=== PATIENT | female | born 1985 | race Caucasian/White ===

== ENCOUNTER 2021-11-11 21:29 | Emergency (ER) | payer BC, SELFPAY ==
[2021-11-11 21:39] VITALS: BP 152/102; PULSE 91; RESP 18; TEMP 36.7; O2SAT 97; BMI 33.0
--- NOTE | 2021-11-11 21:56 | CTR_ITS ---
PROCEDURE INFORMATION: Exam: CT Abdomen And Pelvis Without Contrast Exam date and time: 11/11/2021 10:41 PM Age: 36 years old Clinical indication: Abdominal pain; Generalized; Additional info: Abd pain TECHNIQUE: Imaging protocol: Computed tomography of the abdomen and pelvis without contrast. Radiation optimization: All CT scans at this facility use at least one of these dose optimization techniques: automated exposure control; mA and/or kV adjustment per patient size (includes targeted exams where dose is matched to clinical indication); or iterative reconstruction. COMPARISON: US pelvic with transvaginal 08/07/2017 11:31 PM RADIATION DOSE METRICS: Total DLP (mGy-cm): 899.03 FINDINGS: Liver: Normal. No mass. Gallbladder and bile ducts: Normal. No calcified stones. No ductal dilation. Pancreas: Normal. No ductal dilation. Spleen: Normal. No splenomegaly. Adrenal glands: Normal. No mass. Kidneys and ureters: One or more nonobstructing left renal calyceal stones. Stomach and bowel: Unremarkable. No obstruction. No mucosal thickening. Appendix: Normal appendix. Intraperitoneal space: Unremarkable. No free air. No significant fluid collection. Vasculature: Calcification of the abdominal aorta and/or iliac arteries consistent with atherosclerotic vessel disease. One or more calcified pelvic phleboliths. Lymph nodes: Unremarkable. No enlarged lymph nodes. Urinary bladder: Unremarkable as visualized. Reproductive: Unremarkable as visualized. Bones/joints: Unremarkable. No acute fracture. Soft tissues: Unremarkable. CT/CT abdomen pelvis wo con [id number] IMPRESSION: No acute findings.
--- NOTE | 2021-11-11 21:58 | W.ED.ABDPA2 ---
HPI - Abdominal Pain General: Chief Complaint: Abdominal Pain Stated Complaint: abdomen pain Time Seen by Provider: 11/11/21 21:40 Source: patient Mode of arrival: ambulatory Limitations: no limitations History of Present Illness: 28-year-old female who states she has been having abdominal pains along with diarrhea and nausea for the last month she states she set up for an ultrasound of her gallbladder but pain is worsens week and states is diffuse in nature and has some hoarseness with eating. Rates her pain currently 6 out of 10 denies any fevers denies any chest pain. No history of abdominal surgeries in the past. Associated Symptoms: Reports diarrhea; Denies chills, dysuria and fever(s) Related Data: Date of Last Menstrual Period: 11/07/21 Review of Systems Const: Denies: fever(s), chills, body aches or change in appetite Eyes: Denies: blurry vision or eye discomfort ENMT: Denies: throat pain or dental pain Card: Denies: chest pain Resp: Denies: dyspnea GI: Reports: abdominal pain and diarrhea : Denies: dysuria Musc: Denies: neck pain or back pain Skin/Breast: Denies: rash Neuro: Denies: headache(s) Psych: Denies: depression Leland/Lymph: Denies: easy bruising All/Imm: Denies: urticaria PFSH ED PFSH: Medical History No pertinent past medical history Social History (Updated 11/11/21 @ 21:59 by Carlos Cohen MD) Substance/Drug Use: never Female Reproductive History: Date of last menstrual period: 11/07/21 Physical Exam Const: COMMON NORMALS: no acute distress, patient oriented x3 and healthy appearing HENMT: COMMON NORMALS: normocephalic and atraumatic HEAD & SCALP: normocephalic and atraumatic Eye: COMMON NORMALS: Equal, round and reactive pupils present and EOMs intact bilaterally PUPIL: Yes Equal, round and reactive pupils present Neck/C-Spine: COMMON NORMALS: full ROM and supple Chest: COMMONS NORMALS: normal inspection of the chest and normal palpation of entire chest wall Resp: COMMON NORMALS: normal respiratory effort, No retractions, No use of accessory muscles and clear to auscultation bilaterally AUSCULTATION: clear to auscultation bilaterally Cardio: COMMON NORMALS: regular rate, regular rhythm and No murmurs present (Cardio) RATE: regular rate RHYTHM: regular rhythm GI: COMMON NORMALS: Normal to inspection, nondistended, normoactive bowel sounds present, Soft to palpation and no masses PALPATION: Yes Soft to palpation OTHER: diffuse tenderness Extremity: COMMON NORMALS: normal to inspection and full ROM Neuro: COMMON NORMALS: patient oriented x3, moves all extremities and no focal motor deficits Psych: COMMON NORMALS: mental status grossly normal, Normal thought process present and cooperative THOUGHT PROCESS: Normal thought process present Skin: COMMON NORMALS: no rashes or lesions noted and no wounds GENERAL SKIN EXAM: no rashes or lesions noted Course Vital Signs: Vital signs: Vital Signs Temperature 98.1 F 11/11/21 21:39 Pulse Rate 71 11/11/21 22:57 Respiratory Rate 16 11/11/21 22:57 Blood Pressure 127/76 11/11/21 22:57 Pulse Oximetry 94 11/11/21 22:57 Oxygen Delivery Me thod 11/11/21 21:39 MDM - Abdominal Pain Medical Decision Making Patient presents with abdominal pain that is improved here her blood work and CT scan here are normal her pain here is improved we will place her on [facility] get her follow-up with surgery she is return if worsening she understands agrees to plan. Lab Data : 11/11/21 22:30 11/11/21 22:30 Labs/Radiology: Radiology Impressions Abdomen/Pelvis CT 11/11/21 21:56 IMPRESSION: No acute findings. Laboratory Results WBC 10.3 10^3/uL (4.0-10.0) H 11/11/21 22:30 RBC 4.65 10^6/uL (4.1-5.3) 11/11/21 22:30 Hgb 13.9 g/dL (11.5-15.3) 11/11/21 22:30 Hct 41.2 % (37.0-47.0) 11/11/21 22:30 MCV 88.6 fl (81-99) 11/11/21 22:30 MCH 29.9 pg (28.0-34.0) 11/11/21 22:30 MCHC 33.7 g/dL (30.0-36.0) 11/11/21 22:30 RDW 12.5 % (12.1-15.1) 11/11/21: Plt Count 292 10^3/cmm (130-400) 11/11/21 22: MPV 9.1 fL (7.4-10.4) 11/11/21 22: Neut % (Auto) 48.2 % 11/11/21 22: Lymph % (Auto) 42.2 % 11/11/21: [place] % (Auto) 6.7 % 11/11/21: Eos % (Auto) 2.0 % 11/11/21: Baso % (Auto) 0.6 % 11/11/21: Neut # (Auto) 4.96 10^3/uL (1.8-7.7) 11/11/21: Lymph # (Auto) 4.3 10^3/uL (0.8-4.8) 11/11/21: [place] # (Auto) 0.7 10^3/uL (0.2-0.9) 11/11/21: Eos # (Auto) 0.2 10^3/uL (0.0-0.8) 11/11/21: Baso # (Auto) 0.1 10^3/uL (0.0-0.1) 11/11/21: Nucleated RBC % (auto) 0 % 11/11/21: Nucleated RBCs # 0.0 /100WBC 11/11/21: Sodium 140 mmol/L (136-145) 11/11/21: Potassium 3.6 mmol/L (3.5-5.1) 11/11/21: Chloride 106 mmol/L (98-107) 11/11/21: Carbon Dioxide 22 mmol/L (22-29) 11/11/21: Anion Gap 15.6 (5-19) 11/11/21 22: BUN 13 mg/dL (6-20) 11/11/21: Creatinine 0.7 mg/dL (0.5-0.9) 11/11/21: GFR Calculation 93.6 mL/min (90-130) 09/24/22 22:30 Glucose 137 mg/dL (65-115) H 11/11/21 22:30 Calculated Osmolality 292 mOsm/kg (285-295) 11/11/21 22:30 Calcium 8.7 mg/dL (8.5-10.5) 11/11/21 22:30 Total Bilirubin 0.2 mg/dL (0.15-1.2) 11/11/21 22:30 AST 10 U/L (0-32) 11/11/21 22:30 ALT 12 U/L (0-33) 11/11/21 22:30 Alkaline Phosphatase 90 U/L (35-105) 11/11/21 22:30 Total Protein 7.0 g/dL (6.6-8.7) 11/11/21: Albumin 4.0 g/dL (3.5-5.2) 11/11/21 22: Globulin 3.0 g/dL (1.3-4.6) 11/11/21 22: Lipase 27 U/L (13-60) 11/11/21 22:30 HCG, Qual Negative (Negative) 11/11/21 22:30 Urine Color Yellow (Yellow) 11/11/21 21:35 Urine Appearance Clear (CLEAR) 11/11/21 21:35 Urine pH 7 (5-7) 11/11/21 21:35 Ur Specific [place] 1.010 (1.005-1.030) 11/11/21 21:35 Urine Protein Neg (Negative) 11/11/21 21:35 Urine Glucose (UA) Norm (Normal) 11/11/21 21:35 Urine Ketones Negative (Negative) 11/11/21 21:35 Urine Blood 3+ (Negative) H 11/11/21 21:35 Urine Nitrate Negative (Negative) 11/11/21 21:35 Urine Bilirubin Neg (Negative) 11/11/21 21:35 Urine Urobilinogen Neg mg/dL (Negative) 11/11/21 21:35 Ur Leukocyte Esterase 1+ (Negative) H 11/11/21 21:35 Urine RBC 5-10 /hpf (0-2) H 11/11/21 21:35 Urine WBC 10-15 /hpf (0-5) H 11/11/21 21:35 Ur Squamous Epith Cells 10-15 /hpf (0-5) H 11/11/21 21:35 Amorphous Sediment Not Reportable 11/11/21 21:35 Urine Bacteria Trace /hpf (NONE) 11/11/21 21:35 Discharge Plan Discharge Patient Disposition: Home Clinical Impression: Abdominal pain Qualifiers: Abdominal location: generalized Qualified Code(s): R10.84 - Generalized abdominal pain Prescriptions: New ondansetron 4 mg tablet,disintegrating 4 mg PO Q6H PRN (Reason: nausea and vomiting) Qty: 14 0RF dicyclomine 20 mg tablet 20 mg PO TID PRN (Reason: abdominal pain) Qty: 20 0RF Discharge Orders: Discharge ED (Routine); Ordered 11/11/21 Ordered By: Carlos Cohen Referrals: Corby Rojas MD [Physician] - 1-3 days Mary Coates APRN [Primary Care Provider] - Discharge Diet: Advance as tolerated Discharge Activity: Resume usual activity Patient Instructions: Abdominal Pain (ED) Coding Level of Care Code ED Cartridge Loading Operator for Chg Fwd Exam Comprehensive
[2021-11-11 22:02] LABS: Add Urine Microscopic? YES; Bilirubin Urine Neg (Negative); Blood Urine 3+ (Negative); Glucose Urine UA Norm (Normal); Ketones Urine Negative (Negative); Leukocyte Esterase Urine 1+ (Negative); Nitrate Urine Negative (Negative); Protein Urine Neg (Negative); Urine Appearance Clear (CLEAR); Urine Color Yellow (Yellow); Urobilinogen Urine Neg (Negative); pH Urine 7 (5-7)
[2021-11-11 22:03] LABS: Add Urine Culture? No; Bacteria Urine TRACE /hpf
[2021-11-11] MEDS: sodium chloride 0.9% 1,000 ML 999 ML IV (22:26)
[2021-11-11] MEDS: metoclopramide 5 mg/mL SDV 2 mL 10 MG IVP (22:27)
[2021-11-11] MEDS: diphenhydrAMINE 50 mg/mL SDV 1mL IVP (22:27)
[2021-11-11 22:47] LABS: Basophils # 0.1 10^3/uL (0.0-0.1); Basophils % 0.6 %; Eosinophils # 0.2 10^3/uL (0.0-0.8); Hematocrit 41.2 % (37.0-47.0); Hemoglobin 13.9 g/dL (11.5-15.3); Lymphocytes # 4.3 10^3/uL (0.8-4.8); Lymphocytes % 42.2 %; Mean Corpuscular HGB Conc 33.7 g/dL (30.0-36.0); Mean Corpuscular Hemoglobin 29.9 pg (28.0-34.0); Mean Corpuscular Volume 88.6 fl (81-99); Mean Platelet Volume 9.1 fL (7.4-10.4); Monocytes # 0.7 10^3/uL (0.2-0.9); Monocytes % 6.7 %; Neutrophils # 4.96 10^3/uL (1.8-7.7); Neutrophils % 48.2 %; Nucleated Red Blood Cells % 0 %; Platelet Count 292 10^3/cmm (130-400); Red Blood Count 4.65 10^6/uL (4.1-5.3); Red Cell Distribution Width 12.5 % (12.1-15.1); White Blood Count 10.3 10^3/uL (4.0-10.0)
[2021-11-11 22:57] VITALS: BP 127/76; PULSE 71; RESP 16; O2SAT 94
[2021-11-11 23:07] LABS: HCG, Serum Qual Negative (Negative)
[2021-11-11 23:12] LABS: Alanine Aminotransferase 12 U/L (0-33); Alkaline Phosphatase 90 U/L (35-105); Anion Gap 15.6 (5-19); Aspartate Amino Transferase 10 U/L (0-32); Blood Urea Nitrogen 13 mg/dL (6-20); Calcium 8.7 mg/dL (8.5-10.5); Carbon Dioxide 22 mmol/L (22-29); Chloride 106 mmol/L (98-107); Creatinine Clr Calc Pharmacy 129.4362; Glomerular Filtration Rate 93.6 mL/min (90-130); Glucose 137 mg/dL (65-115); Lipase 27 U/L (13-60); Osmolality Calculated 292 mOsm/kg (285-295); Potassium 3.6 mmol/L (3.5-5.1); Sodium 140 mmol/L (136-145); Total Bilirubin 0.2 mg/dL (0.15-1.2)
[2021-11-11 23:43] VITALS: BP 117/68; PULSE 63; RESP 16; O2SAT 95
--- NOTE | 2021-11-14 09:09 | DCPLANNER ---
Addendum entered by Deneen Cuellar 02/07/22 10:45: This appointment has been cancelled Addendum entered by Deneen Cuellar 11/14/21 15:07: Patient has a follow up appointment scheduled for Monday, November 22, 2021 at 3:[address] Rojas at general surgery. Clinic will call patient with appointment information. Original Note: assistant sales center manager had message to schedule a follow up appointment for patient with general surgery. assistant sales center manager sent patients information to the front office staff at general surgery. Patients information will be printed and reviewed. Clinic will call patient with appointment information.
== END 2021-11-11 23:30 | disposition home or self-care (01) ==
PROVIDERS: Emergency Provider Emergency Medicine; PCP Nurse Practitioner Family
DX: R10.84 Generalized abdominal pain (principal)
CPT/HCPCS: 74176; 80053; 81001; 83690; 84703; 85025; 96361; 96374; 96375; 99285; J1200; J2765; J7030

== ENCOUNTER 2024-10-18 15:13 | Emergency (ER) | payer MEDICAID, SELFPAY ==
--- OUTSIDE RECORDS SUMMARY | 2024-04-22 03:45 | XMS_ITS ---
Author Organization [facility] Address [address] [place] [address] Care Team Providers Care Collet Maker Name Role Phone Mary Coates APRN Primary Care Provider Sarah espinosaJocy West Unavailable [phone] Justin Black [phone] REASON FOR VISIT Over Due OV; CCS NOT DONE Encounters Encounter Location Date Provider Diagnosis [facility] [address] [place] [address], [place] [address] 04/22/2024 Justin Black Plan Of Treatment No Information Progress Notes * KAREN STOKESOB:[birth year] (39 yo F)Acc No.[id number]:04/22/2024 Progress Notes Patient: ALPESH DIAMOND Provider: Henrry Black MD :1985 A ge:38 Y S ex:Female Date:04/22/2024 Address: [address] [id number] Pcp:Mary Coates APRN Subjective: * Chief Complaints: * O horace Due OV; CCS NOT DONE Billing Information: * Procedure Codes: Care Plan Details* * Electronic signature of Jose M Black MD on 10/18/2024 at 03:17 PM CDT Sign off status: Pending * Provider: Henrry Black MD Date: 04/22/2024 Generated for Printi ng/Faxing/eTransmitting on: 0 10/18/2024 03:17 PM CDT
--- OUTSIDE RECORDS SUMMARY | 2024-05-11 04:00 | XMS_ITS ---
Author Organization [facility] Address [address] [place] [address] Care Team Providers Care Hip Hop Dance Instructor Name Role Phone Mary Coates APRN Primary Care Provider Sarah Jocy Parker Unavailable [phone] Lisa Shine Unavailable [phone] Allergies Allergen (clinical drug ingredient) Drug/Non Drug Allergy documented on EMR Reaction Allergy Type Onset Date Status Information temporarily unavailable Other (uncoded) (Tylenol w/Codeine #3) - bad thoughts Allergy Active Information temporarily unavailable Acetaminophen-Code ine , , Drug Allergy Active Information temporarily unavailable Codeine Unknown Drug Allergy Active REASON FOR VISIT dysmenorrhea Medications Medication SIG (Take, Route, Frequency, Duration) Notes Start Date End Date Status clonazePAM 0.5 MG Tablet 1 tablet at bedtime Orally Once a day Unknown Citalopram Hydrobromide 20 MG Tablet 1 tablet Orally Once a day Unknown Naproxen 500 MG Oral Tablet Naproxen 500 MG Oral Tablet 03/24/2015 Unknown ProAir HFA 108 (90 Base) MCG/ACT Aerosol Solution 2 puffs as needed Inhalation every 4 to 6 hrs; Duration: 30 days 12/06/2020 Unknown HYDROcodone-Acetaminophen 7.5-325 MG Tablet TAKE ONE TABLET BY MOUTH EVERY 6 HOURS NEEDED. DO NOT EXCEED TWO TABLETS PER DAY Oral; Duration: 30 Unknown Ativan 1 MG Tablet 1 tab Orally 30 mins prior to proc and 1 tab immediately before procedure if needed; Duration: 1 days fill 01/09/24 01/09/2024 Unknown Naproxen 500 MG Tablet 1 tablet with food or milk as needed Orally twice a day; Duration: 30 days As needed Fill 30 days from previous RX 04/17/2024 5 Unknown Naproxen 500 MG Tablet 1 tablet Orally Twice a day; Duration: 90 days Fill from previous Rx 02/20/2024 5 Unknown Metoprolol Succinate ER 50 MG Tablet Extended Release 24 Hour 1 tablet Orally Once a day; Duration: 90 days keep 10/23/2023 Appointment Unknown HYDROcodone-Acetaminophen 7.5-325 MG Tablet 1 tablet as needed Orally every 6 hrs; Duration: 30 days As needed Do not exceed 4 per day Fill on 04-17-24 due to being closed 04/17/2024 5 Unknown clonazePAM *Pick strength-form from [facility] for eRX* Unknown Omeprazole *Pick strength-form from [facility] for eRX* Unknown phentermine *Reorder from [facility] for eRx and Interaction Alerts* Unknown Lisinopril *Pick strength-form from [facility] for eRX* Unknown hydroCHLOROthiazide *Pick strength-form from [facility] for eRX* Unknown Buspirone *Reorder from [facility] for eRx and Interaction Alerts* Unknown Omeprazole 20 MG Capsule Delayed Release TAKE ONE CAPSULE BY MOUTH EVERY DAY Diagnosis Unavailable Oral; Duration: 30 Unknown Encounters Encounter Location Date Provider Diagnosis [address] [place] [address] [place] [address], [place] [address] 05/11/2024 Lisa Shine Plan Of Treatment No Information History and Physical Notes * HPI (History of Present Illness) Category Sub-Category Detail Notes Category Not es Provider Note 39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 Reports normal monthly cycles. Denies h/o abnormal pap. Denies breast pain, discharge. Denies pain or bleeding with intercourse. Denies dysuria or constipation. Denies vaginal discharge, odor, itching, burning. Denies fevers, BLAIR, CP, SOB, abd pain, leg pain. PMH obtained by me: PMH: PSH: choleystectomy, ovarian cyst removal Med: All: codeine/ FHx: Denies and GI cancers, denies blood disorders, SHx: Negative x3, lives with , safe, denies h/o abuse, works as Gynhx: menarche , no h/o abnormal paps (last pap 08/2020), no h/o STI OBhx: G Examination Category Sub-Category Detail Notes Category Not es General Examination General: well nourished, NAD, cooperative, well groomed Neuro: AAOx3, normal mood, normal gait HEENT: no conjunctival pallor or scleral injection, Normal thyroid, no LAD Skin: [place], warm, dry, no rashes CV: RRR, no murmur Lungs: CTAB, no crackles or wheezing, non labored, good effort Breast: normal appearance bilaterally without dimpling, edema, retraction, or ulceration; symmetric, normal nipples without discharge, inversion, or retraction; no masses, no LAD Abd: soft, ND, NT, no masses, +BS; no CVAT Ext: no edema, not TTP, +2 pulses, Examination Pelvic Exam: Chaperoned by External: normal female genitalia and urethra, no hyper/hypopigmentation, no lesions, no LAD, normal hair pattern, Speculum: normal vaginal mucosa, normal appearing cervix without masses or lesions, white discharge, no blood in vault, os visually closed, BME: Os closed, no CMT, uterus, no pelvic or adnexal masses palpated, no uterine or adnexal tenderness, RVE: normal appearing anus, Progress Notes * KAREN STOKESOB:[birth year] (39 yo F)Acc No.[id number]:05/11/2024 Patient: ALPESH DIAMOND Provider: Henrry Shine MD :1985 A ge:39 Y S ex:Female Date:05/11/2024 Address:[address] [id number] Pcp:Mary Coates APRN Subjective: * Chief Complaints: * D ysmenorrhea * HPI: P rovider Note: 39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 Reports normal monthly cycles. Denies h/o abnormal pap. Denies breast pain, discharge. Denies pain or bleeding with intercourse. Denies dysuria or constipation. Denies vaginal discharge, odor, itching, burning. Denies fevers, BLAIR, CP, SOB, abd pain, leg pain. PMH obtained by me: PMH: PSH: choleystectomy, ovarian cyst removal Med: All: codeine/ FHx: Denies and GI cancers, denies blood disorders, SHx: Negative x3, lives with , safe, denies h/o abuse, works as Gynhx: menarche , no h/o abnormal paps (last pap 08/2020), no h/o STI OBhx: G. * ROS: C onstitutional: No fevers, chills, sweats HEENT: no eye pain or discharge, ear pain, nasal congestion, sore throat, Integumentary: no rashes, breast pain or drainage Respiratory: No shortness of breath, cough, Cardiovascular: No Chest pain, palpitations, syncope Gastrointestinal: No nausea, vomiting, diarrhea, constipation, Genitourinary: No hematuria, dysuria, flank pain, pelvic pain, vaginal discharge, vaginal odor, Endocrine: No excessive thirst or hunger, skin/nail/hair changes, hot/cold intolerance, Musculoskeletal: No back pain, neck pain, joint pain, muscle pain, decreased range of motion Neurologic: No headaches, dizziness, changes in vision, Psychiatric: No anxiety, depression. * Medical History: Anxiety Bipolar disorder Chronic fatigue syndrome Depression Gastroesophageal reflux disease Intervertebral disc prolapse Nicotine dependence Obesity Sleep apnea COVID COVID-19 vaccination refused * Surgical History: cyst removed from R ovary cyst removed right ovary Cyst Removal choleystectomy 12/2021 * Hospitalization/Major Diagno stic Procedure: [facility] cp 11/22/2020 [facility] ED - elevated HR 03/2022 * Medications: U nknownCitalopram Hydrobromide 20 MG Tablet 1 tablet Orally Once a day clonazePAM 0.5 MG Tablet 1 tablet at bedtime Orally Once a day ProAir HFA 108 (90 Base) MCG/ACT Aerosol Solution 2 puffs as needed Inhalation every 4 to 6 hrs Naproxen 500 MG Oral Tablet , Notes to Pharmacist: Naproxen 500 MG Oral TabletHYDROcodone- Acetaminophen 7.5-325 MG Tablet TAKE ONE TABLET BY MOUTH EVERY 6 HOURS NEEDED. DO NOT EXCEED TWO TABLETS PER DAY Oral Omeprazole 20 MG Capsule Delayed Release TAKE ONE CAPSULE BY MOUTH EVERY DAY Diagnosis Unavailable Oral Buspirone , Notes to Pharmacist: *Reorder from [facility] for eRx and Interaction Alerts*hydroCHLOROthiazide , Notes to Pharmacist: *Pick strength-form from [facility] for eRX*Lisinopril , Notes to Pharmacist: *Pick strength-form from [facility] for eRX*Omeprazole , Notes to Pharmacist: *Pick strength-form from [facility] for eRX*clonazePAM , Notes to Pharmacist: *Pick strength-form from [facility] for eRX*phentermine , Notes to Pharmacist: *Reorder from [facility] for eRx and Interaction Alerts*Ativan 1 MG Tablet 1 tab Orally 30 mins prior to proc and 1 tab immediately before procedure if needed , Notes to Pharmacist: fill 01/09/24Metoprolol Succinate ER 50 MG Tablet Extended Release 24 Hour 1 tablet Orally Once a day keep 10/23/2023 AppointmentNaproxen 500 MG Tablet 1 tablet Orally Twice a day , stop date 05/20/2024, Notes to Pharmacist: Fill from previous RxHYDROcodone-Acetaminophen 7.5-325 MG Tablet 1 tablet as needed Orally every 6 hrs As needed Do not exceed 4 per day, stop date 05/17/2024, Notes to Pharmacist: Fill on 04-17-24 due to being closedNaproxen 500 MG Tablet 1 tablet with food or milk as needed Orally twice a day As needed, stop date 05/17/2024, Notes to Pharmacist: Fill 30 days from previous RXUnknown Citalopram Hydrobromide 20 MG Tablet 1 tablet Orally Once a day Unknown clonazePAM 0.5 MG Tablet 1 tablet at bedtime Orally Once a day Unknown ProAir HFA 108 (90 Base) MCG/ACT Aerosol Solution 2 puffs as needed Inhalation every 4 to 6 hrs Unknown Naproxen 500 MG Oral Tablet , Notes to Pharmacist: Naproxen 500 MG Oral TabletUnknown HYDROcodone-Acetaminophen 7.5-325 MG Tablet TAKE ONE TABLET BY MOUTH EVERY 6 HOURS NEEDED. DO NOT EXCEED TWO TABLETS PER DAY Oral Unknown Omeprazole 20 MG Capsule Delayed Release TAKE ONE CAPSULE BY MOUTH EVERY DAY Diagnosis Unavailable Oral Unknown Buspirone , Notes to Pharmacist: *Reorder from [facility] for eRx and Interaction Alerts*Unknown hydroCHLOROthiazide , Notes to Pharmacist: *Pick strength-form from [facility] for eRX*Unknown Lisinopril , Notes to Pharmacist: *Pick strength-form from [facility] for eRX*Unknown Omeprazole , Notes to Pharmacist: *Pick strength-form from [facility] for eRX*Unknown clonazePAM , Notes to Pharmacist: *Pick strength-form from [facility] for eRX*Unknown phentermine , Notes to Pharmacist: *Reorder from [facility] for eRx and Interaction Alerts*Unknown Ativan 1 MG Tablet 1 tab Orally 30 mins prior to proc and 1 tab immediately before procedure if needed , Notes to Pharmacist: fill 01/09/24Unknown Metoprolol Succinate ER 50 MG Tablet Extended Release 24 Hour 1 tablet Orally Once a day keep 10/23/2023 AppointmentUnknown Naproxen 500 MG Tablet 1 tablet Orally Twice a day , stop date 05/20/2024, Notes to Pharmacist: Fill from previous RxUnknown HYDROcodone-Acetaminophen 7.5-325 MG Tablet 1 tablet as needed Orally every 6 hrs As needed Do not exceed 4 per day, stop date 05/17/2024, Notes to Pharmacist: Fill on 04-17-24 due to being closedUnknown Naproxen 500 MG Tablet 1 tablet with food or milk as needed Orally twice a day As needed, stop date 05/17/2024, Notes to Pharmacist: Fill 30 days from previous RX * Allergies: O ther: (Tylenol w/Codeine #3) - bad thoughts - AllergyAcetaminophen-Codeine: , , - AllergyCodeine: Allergy Objective: * Examination: G eneral Examination: G eneral: well nourished, NAD, cooperative, well groomed Neuro: AAOx3, normal mood, normal gait HEENT: no conjunctival pallor or scleral injection, Normal thyroid, no LAD Skin: [place], warm, dry, no rashes CV: RRR, no murmur Lungs: CTAB, no crackles or wheezing, non labored, good effort Breast: normal appearance bilaterally without dimpling, edema, retraction, or ulceration; symmetric, normal nipples without discharge, inversion, or retraction; no masses, no LAD Abd: soft, ND, NT, no masses, +BS; no CVAT Ext: no edema, not TTP, +2 pulses,. E xamination: P elvic Exam: Chaperoned by External: normal female genitalia and urethra, no hyper/hypopigmentation, no lesions, no LAD, normal hair pattern, Speculum: normal vaginal mucosa, normal appearing cervix without masses or lesions, white discharge, no blood in vault, os visually closed, BME: Os closed, no CMT, uterus, no pelvic or adnexal masses palpated, no uterine or adnexal tenderness, RVE: normal appearing anus,. Billing Information: * Procedure Codes: * Electronic signature of Javier Shine MD on 10/18/2024 at 03:17 PM CDT Sign off status: Pending * Provider: Henrry Shine MD Date: 05/11/2024 Generated for Sierra gonzalez/Phill/Melanieitting on: 10/18/2024 03:17 PM CDT
--- OUTSIDE RECORDS SUMMARY | 2024-07-23 04:20 | XMS_ITS ---
Author Organization [facility] Address [address] [place] [address] Care Team Providers Care Statuary Painter Name Role Phone Mary Coates APRN Primary Care Provider Sarah Jocy Parker [phone] REASON FOR VISIT fu Encounters Encounter Location Date Provider Diagnosis [facility] [address] [address] 07/23/2024 Jocy Thomas Plan Of Treatment No Information History and Physical Notes * HPI (History of Present Illness) Category Sub-Category Detail Notes Category Not es Provider Note Ms. Stokes presents today for a 2 month follow up. She continues with pain in multiple areas, including the mid-back, left shoulder, right shoulder, low back, and right knee. She reports that she has had some return of her lower back pain as well as radicular symptoms. She is done well with LESI's in the past noting greater than 50% relief for greater than 3 months. After discussion she would like to proceed with an episodic LESI L5-S1. I did review her most recent MRI which shows disc degeneration at L5-S1 with moderate bilateral foraminal narrowing. Central annular tear at L4-5 without nerve root impingement or central stenosis. The patient is currently taking hydrocodone, 7.5-325, three times a day for pain management. She feels this is working reasonably well for her. She denies any other changes since we last seen her any untoward side effects of the medication. PDMP was reviewed and found to be compliant with care. Last UDS is consistent. UDS at pcups-cj-auhs today is consistent. Pill count is accurate today. She will continue her medication at present level and will return to clinic after procedure to monitor for treatment effectiveness and compliance. Pain Details Pain Location Left Leg, Right Leg, Lower Back, Mid Back, Left Shoulder, Right Shoulder, Neck Duration Onset Frequency of Pain Quality Sharp, Stabbing, Dul l, Aching, Throbbing, Burning, Tingling, Numbness Radiation Severity of pain at its worst 8/10 Severity of pain at its best 2/10 Severity of average pain 2/10 Severity of pain right now 5/10 Worsening factors Relieving factors Associated symptoms Severity of pain on medication 03/30 When did you last take your pain medicin e 02/20/24 at 6AM Medication Details Do you have a lock b ox or safe place for medication away from minors and/or others? Yes Do you have any leftover pain medication building up at your house? No Do you understand that pain medication c an be addicting and can cause overdose? Yes Do you feel you can REDUCE the amount of medication you take today? No Opioid Assessment Tools Pill Count presents out of m edication. Last Urine Drug Screen 12/18/23 - cup - ok Today's Rapid Urine Drug Screen shows co nsistent with prescribed medication [place] Prescription Monitoring Program found to be consistent with treatment history, reviewed today COMM (Current Opioid Misuse Measure) Les s than 9 : indicates low risk of abuse behaviors When did you last take your pain medicat ion Treatment History Test undergone in e past MRI scan or CT scan, X-rays 01/20/24 L5-S1 [address]MY [address] Dr. Jensen Past medication you have taken NSAIDs; i buprofen, Aleve, Tylenol, sports creams, Flexeril, Zanaflex, baclofen, Ultram/Ultram ER andhydrocodone in the past 01/17/24 - Hydrocodone 7.5/325 3/day #90 -IDC Treatments you have had rest, ice, heat, stretching, position changes, ezrc-lll-xfttart medications, heating pads, epidural steroid injection, medial branch block and radiofrequency denervation. She says that the prior treatments tried have not helped much. The treatments were started when the home remedies and other OTCs did not work. Progress Notes * ANATOLY STOKES:[birth year] (39 yo F)Acc No.[id number]:07/23/2024 Progress Notes Patient: ALPESH DIAMOND Provider: CELESTINA Hill :1985 A ge:39 Y S ex:Female Date:07/23/2024 Address:[id number] Pcp:Mary Coates APRN Subjective: * Chief Complaints: * F u * HPI: P ain Details: Pain Location L eft Leg, Right Leg, Lower Back, Mid Back, Left Shoulder, Right Shoulder, Neck. Quality S harp, Stabbing, Dull, Aching, Throbbing, Burning, Tingling, Numbness. Severity of pain at its worst 8 /10. Severity of pain at its best 2 /10. Severity of pain on medication 2 /10. Severity of average pain 2 /10. Severity of pain right now 5 /10. When did you last take your pain medicine at 6AM.? M edication Details: Do you have a lock box or safe place for medication away from minors and/or others? Y es. Do you have any leftover pain medication building up at your house? N o. Do you understand that pain medication can be addicting and can cause overdose? Y es. Do you feel you can REDUCE the amount of medication you take today? N o. O pioid Assessment Tools: COMM (Current Opioid Misuse Measure) L ess than 9 : indicates low risk of abuse behaviors. Pill Count p resents out of medication.. Last Urine Drug Screen 1 - cup - ok. Today's Rapid Urine Drug Screen s hows consistent with prescribed medication. [place] Prescription Monitoring Program f ound to be consistent with treatment history, reviewed today. T reatment History: Test undergone in the past M RI scan or CT scan, X-rays.? Past medication you have taken N SAIDs; ibuprofen, Aleve, Tylenol, sports creams, Flexeril, Zanaflex, baclofen, Ultram/Ultram ER andhydrocodone in the past 1 03/18/23 - Hydrocodone 7.5/325 3/day #90 -IDC. Treatments you have had r est, ice, heat, stretching, position changes, joxq-iqd-aurzkkl medications, heating pads, epidural steroid injection, medial branch block and radiofrequency denervation. She says that the prior treatments tried have not helped much. The treatments were started when the home remedies and other OTCs did not work.. 01/20/24 L5-S[address]MY [address] Dr[address] Jensen. Raysa anthony Note: Ms. Stokes presents today for a 2 month follow up. She continues with pain in multiple areas, including the mid-back, left shoulder, right shoulder, low back, and right knee. She reports that she has had some return of her lower back pain as well as radicular symptoms. She is done well with LESI's in the past noting greater than 50% relief for greater than 3 months. After discussion she would like to proceed with an episodic LESI L5-S1. I did review her most recent MRI which shows disc degeneration at L5-S1 with moderate bilateral foraminal narrowing. Central annular tear at L4-5 without nerve root impingement or central stenosis. The patient is currently taking hydrocodone, 7.5-325, three times a day for pain management. She feels this is working reasonably well for her. She denies any other changes since we last seen her any untoward side effects of the medication. PDMP was reviewed and found to be compliant with care. Last UDS is consistent. UDS at qjrzl-hb-wkzu today is consistent. Pill count is accurate today. She will continue her medication at present level and will return to clinic after procedure to monitor for treatment effectiveness and compliance. Care Plan Details* * Electronic signature of Melissa Thomas APRN on 10/18/2024 at 03:18 PM CDT Sign off status: Pending * Provider: Jose Thomas, CELESTINA Date: 0 07/23/2024 Generated for Sierra gonzalez/Phill/Liz on: 0 10/18/2024 03:18 PM CDT
--- OUTSIDE RECORDS SUMMARY | 2024-10-18 15:18 | XMS_ITS | Patient Health Record ---
Author Organization [facility] Address [address] [facility], [place] [address] Care Team Providers Care Audit Clerk Name Role Phone Mary Coates APRN Primary Care Provider Sarah Jocy Parker Unavailable [phone] Lisa Shine Unavailable [phone] Migration, Provider Unavailable Unavailable Justin Black Unavailable [phone] Nestor Yao Unavailable [phone] Bere Landry Unavailable [phone] Tim Jensen Unavailable [phone] Pau Akins Unavailable [phone] Allergies Allergen (clinical drug ingredient) Drug/Non Drug Allergy documented on EMR Reaction Allergy Type Onset Date Status Information temporarily unavailable Other (uncoded) (Tylenol w/Codeine #3) - bad thoughts Allergy Active Information temporarily unavailable Acetaminophen-Code ine , , Drug Allergy Active Information temporarily unavailable Codeine Unknown Drug Allergy Active Results Component Value Reference Range Notes Culture Urine [id number] Reviewed date:12/19/2023 06:32:09 AM Interpretation: Performing Lab: Notes/Report: Culture Urine Godwin ALEXANDRATON ALPESH Culture Urine t: Culture Urine Culture Urine Access [id number] Culture Urine n: Culture Urine Microbiology Culture Urine PROCEDURE: Culture U gino [] Culture Urine SOURCE: Urine BODY SITE: Culture Urine COLLECTED DATE/TIME: 12/14/2023 22:04 CDT RECEIVED DATE/TIME: 12/16/2023 19:06 CDT Culture Urine START DATE/TIME: 19:07 CDT FREE TEXT SOURCE: Culture Urine FINAL REPORT Culture Urine Final Report [] Culture Urine Verified Date/Time: 12/18/2023 05:48 CDT Culture Urine <10,000 cfu/ml Mixed Superficial Shaniqua CT Abdomen, Pelvis w/o Contr ast-[id number] Reviewed date:12/19/2023 06:32:09 AM Interpretation: Performing Lab: Notes/Report: Radiology report is located at [facility] - [phone] FINAL REPORT Read Radiology report is located at [facility] - [phone] MRI Lumbar Spine w/o Cont-[id number] (Not yet reviewed by provider) Interpretation: Performing Lab: Notes/Report: [id number] MRI Lumbar Spine w/o Cont-72 [id number] (Not yet reviewed by provider) Interpretation: Performing Lab: Notes/Report: See Below For Report MRI Lumbar Spine w/o Cont Read See Below For Report Schedule Confirmation (Not y et reviewed by provider) Interpretation: Performing Lab: Notes/Report: MRI Lumbar Spine w/o Cont Fluoro Needle For Placement - Spine [id number] Reviewed date:01/20/2024 10:58:23 AM Interpretation: Performing Lab: Notes/Report: Urine Drug Screen (cup read) - [id number] Reviewed date:02/25/2024 03:32:27 PM Interpretation: Performing Lab: Notes/Report: OPI + Urine Drug Screen (cup read) - [id number] Reviewed date:04/17/2024 01:37:01 PM Interpretation:Negative Performing Lab: Notes/Report: Negative zzzUrine Drug Screen (confir mation by instrument) - [id number] Reviewed date:02/24/2024 02:21:07 PM Interpretation: Performing Lab: Notes/Report: Reason For Referral Reason DYSMENORRHEA note sent to referring unable to accept. dr yao is not taking new pt. Diagnosis 1 Dysmenorrhea, unspec ified (N94.6) Referring Provider First Name Mary Referring Provider Last Name Jaxon Referring Provider Speciality Nurse Prac titioner Ref[facility] Referred Provider Nestor Yao Referred Address [address] [place] [address] [address],[place], [place],[address], Referred Provider Specialty OB - Gynecol ogy Referral Priority Routine Reason dysmenorrhea No Sh ow note sent to referring Diagnosis 1 Dysmenorrhea, unspec ified (N94.6) Referring Provider First Name Mary Referring Provider Last Name Coates Referring Provider Speciality Nurse Brock cruz [facility] Referred Provider Lisa Shine Referred Address [address] [place] [address] [address],[place], [place],[address], Referred Provider Specialty Safety Sitter and kiln firer Referral Priority Routine Medications Medication SIG (Take, Route, Frequency, Duration) Notes Start Date End Date Status clonazePAM *Pick strength-form from [employer] for eRX* Unknown Omeprazole *Pick strength-form from [employer] for eRX* Unknown clonazePAM 0.5 MG Tablet 1 tablet at bedtime Orally Once a day Unknown Ativan 1 MG Tablet 1 tab Orally 30 mins prior to proc and 1 tab immediately before procedure if needed; Duration: 1 days fill 01/09/24 01/09/2024 Unknown Citalopram Hydrobromide 20 MG Tablet 1 tablet Orally Once a day Unknown phentermine *Reorder from [employer] for eRx and Interaction Alerts* Unknown Buspirone *Reorder from [employer] for eRx and Interaction Alerts* Unknown Lisinopril *Pick strength-form from [employer] for eRX* Unknown hydroCHLOROthiazide *Pick strength-form from [employer] for eRX* Unknown Naproxen 500 MG Oral Tablet Naproxen 500 MG Oral Tablet 03/24/2015 Unknown ProAir HFA 108 (90 Base) MCG/ACT Aerosol Solution 2 puffs as needed Inhalation every 4 to 6 hrs; Duration: 30 days 12/06/2020 Unknown Metoprolol Succinate ER 50 MG Tablet Extended Release 24 Hour 1 tablet Orally Once a day; Duration: 90 days keep 10/23/2023 Appointment Unknown Omeprazole 20 MG Capsule Delayed Release TAKE ONE CAPSULE BY MOUTH EVERY DAY Diagnosis Unavailable Oral; Duration: 30 Unknown HYDROcodone-Acetaminophen 7.5-325 MG Tablet TAKE ONE TABLET BY MOUTH EVERY 6 HOURS NEEDED. DO NOT EXCEED TWO TABLETS PER DAY Oral; Duration: 30 Unknown Immunizations Vaccine Route Administration Date Status Comme nts COVID-19 Vaccine (Moderna) Dose #1 Unknown 10/27/2020 A dministered Flu vaccine no Preserv 3 and > Unknown 07/15/2017 Admin istered Fluarix Quadrivalent Unknown 12/23/2014 Administered Flucelvax Quadrivalent Pres Free Unknown 12/06/2020 Ref used Flu vaccine no Preserv 3 and > Unknown 01/08/2014 Admin istered Social History Tobacco Use: Social History Observation Description Date Details (start date - stop date) Current Smoker NA - NA Social History Drugs/Alcohol: Social Info Question Answer Notes Alcohol Screen (Audit-C) Did you have a drink containing alcohol in the past year? No Points 0 Interpretation Negative Caffeine Intake: more than 4 cups per day Tobacco Use: Social Info Question Answer Notes xTobacco Use/Smoking Are you a current smoker How often do you smoke cigarettes? every day How many cigarettes a day do you smoke? 11-20 How soon after you wake up do you smoke your first cigarette? 6-30 minutes Are you interested in quitting? Thinking about quitting Additional Details Category Social Info Options Details Migrated Social History Migrated Social History Alcoholic beverages? - No, Currently on disability? - No, I am interested in quitting. - Yes, Marital Status - , Smoking status (MU) - Current every day smoker, Working currently? - Yes zzMigrated Social History Migrated Social History Smoking Status:Smokes tobacco daily (finding) Tobacco Use: (Tobacco Use/Smoking): Are you a:: current smoker ; Section Notes: Alcohol Denies Caffiene rarely Alcohol Denies Caffiene rarely Alcohol Denies Caffiene rarely Alcohol Denies Caffiene Admits Problems Problem Type SNOMED Code ICD Code Onset Dates Problem Status W/U Status Risk Notes Problem Information temporarily unavailable Hypersomnia, unspecified (G47.10) Active confirmed Problem Information temporarily unavailable Chronic pain syndrome (G89.4) 4 Active confirmed Problem Information temporarily unavailable Sacroiliitis, not elsewhere classified (M46.1) 4 Active confirmed Problem Information temporarily unavailable Other spondylosis, lumbosacral region (M47.897) 4 Active confirmed Problem Information temporarily unavailable Other intervertebral disc degeneration, lumbosacral region (M51.37) 4 Active confirmed Problem Information temporarily unavailable Radiculopathy, cervical region (M54.12) 4 Active confirmed Problem Information temporarily unavailable Radiculopathy, lumbosacral region (M54.17) 4 Active confirmed Problem Information temporarily unavailable Dysmenorrhea, unspecified (N94.6) Active confirmed Problem Information temporarily unavailable Nonrheumatic mitral (valve) insufficiency (I34.0) Active confirmed Problem Information temporarily unavailable Cigarette nicotine dependence without complication (F17.210) Active confirmed Problem Information temporarily unavailable Essential primary hypertension (I10) Active confirmed Vital Signs Height-cm 170.18 cm 04/17/2024 Weight-kg 95.71 kg 04/17/2024 Height 67.00 in 04/17/2024 Weight 211 lbs 04/17/2024 BMI 33.04 kg/m2 04/17/2024 Procedures Procedure Date Ordered Date Performed Result Body Sit e Epidural, Lumbar/Sacral (Cau rony), w/ imaging guidance - [id number] 01/20/2024 01/20/2024 N/A Conscious Sedation, Professi onal Only - [id number] 01/20/2024 01/20/2024 N/A Epidural, Cervical/ Thoracic , w/ imaging guidance - [id number] 04/27/2024 04/30/2024 N/A Epidural, Lumbar/Sacral (Cau rony), w/ imaging guidance - [id number] 04/27/2024 04/27/2024 N/A Conscious Sedation, Professi onal Only - 65013 04/27/2024 04/27/2024 N/A Encounters Encounter Location Date Provider Diagnosis [facility] [address] [place] [address] 12/11/2023 Bere Landry [facility] [address] [place] [address] 01/20/2024 Tim Jensen Radiculopathy, lumbosacral region M54.17 [facility] [address] [place] [address] 02/20/2024 Pau Akins Chronic pain syndrome G89.4 ; Radiculopathy, cervical region M54.12 ; Radiculopathy, lumbosacral region M54.17 ; Other spondylosis, lumbosacral region M47.897 ; Sacroiliitis, not elsewhere classified M46.1 and group home (current) use of opiate analgesic Z79.891 [facility] [address] [place] [place] [address] 04/17/2024 Jocy Thomas Chronic pain syndrome G89.4 ; Radiculopathy, cervical region M54.12 ; Radiculopathy, lumbosacral region M54.17 ; Other spondylosis, lumbosacral region M47.897 ; Sacroiliitis, not elsewhere classified M46.1 and group home (current) use of opiate analgesic Z79.891 [facility] [address] [place] [place] [address] 04/27/2024 Tim Mikey Radiculopathy, cervical region M54.12 [facility]rated[facility]Facility 0 0 12/14/2023 Provider Migration [facility]Facility 0 0 12/15/2023 Provider Migration [facility] [address] [place] [address] 01/01/2024 Bere Landry Chronic pain syndrome G89.4 [facility] [address] [place] [place] [address] 01/02/2024 Bere Frantz [facility] [address] [place] [address] 01/09/2024 Bere Frantz [facility] [address] [place] [address] 01/09/2024 Bere Landry [address] [place] [address] 01/14/2024 Nestor Yao [facility] [address] [place] [address] 02/06/2024 Justin Black Essential primary hypertension I10 [address] [place] [address] 02/18/2024 Lisa Shine [facility] [address] [facility] [place] [address] 04/20/2024 Jocy Thomas [facility] [address] [place] [address] 04/27/2024 Bere Lanrdy Chronic pain syndrome G89.4 and Radiculopathy, cervical region M54.12 Assessments Encounter Date Diagnosis (ICD Code) Assessment Notes Treatment Notes Treatment Clinical Notes Section Notes 01/01/2024 Chronic pain syndrome (ICD-10 - G89.4) 01/20/2024 Radiculopathy, lumbosacral region (ICD-10 - M54.17) 02/06/2024 Essential primary hypertension (ICD-10 - I10) 02/20/2024 Chronic pain syndrome (ICD-10 - G89.4) Patient presents with reported neck and low back pain. She had injury to her right knee that required stitches and she has noted an uneventful recovery. She presents today out of medication as she was due to refill several days prior. She will return in two months for ongoing assessment of her care and compliance. 02/20/2024 Radiculopathy, cervical region (ICD-10 - M54.12) 04/17/2024 Chronic pain syndrome (ICD-10 - G89.4) RECOMMEND THERAPEUTIC LUMBAR EPIDURAL STEROID INJECTION, levels L5-S1 The patient reports overall 50% improvement in function and decrease in pain for greater than one month from previous diagnostic DELMY. The patient also reports improvement in tolerance to activities which generally cause pain. Based on the results of previous diagnostic DELMY, a therapeutic DELMY is recommended. Expectation from a successful therapeutic epidural steroid injection is at least 50-70% relief of pain from baseline and evidence of improved function for at least six to eight weeks after delivery. The goal of epidural steroid injections is to reduce pain and inflammation, restoring range of motion and, thereby, facilitating progress in more active treatment programs, and avoiding surgery. The procedure and risks were discussed with the patient including but not limited to infection, bleeding, neurological complications, side effects from medications, no change in pain, worsening of pain, or even . We also discussed conservative options, surgical options, and medical management with patient as well. The patient indicates understanding and wishes to proceed with the recommended treatment approach. The patient was given written information about the procedure and all questions were answered. The patient continues with chronic pain requiring treatment to help restore function and improve quality of life. Risks of opioid therapy as well as interaction of opioids with alcohol, illicit drugs, muscle relaxers, and other sedative medications are reviewed briefly with patient again today. The patient has trialed all other reasonable treatment options and uses the medication to alleviate pain in order to remain active and rest with less pain. No clinically relevant medication side effects are noted. Last UDS and [place] INTEGRATED CIRCUIT IC LAYOUT DESIGNER reviewed today. Patient is advised that best long-term goals include increased activity, core strengthening, proper weight management, coping strategies, avoidance of painful triggers, and targeted interventional therapy. We will see the patient for routine follow up in accordance with all clinic policies. We did remind patient today of current guidelines to decrease opioid when possible. We will continue to stress nonopioid treatment. URINE TESTING TODAY; POINT OF SERVICE Urine drug screening will be performed today to monitor compliance with opioid therapy or to serve as a baseline screen for a patient who may be a candidate for opioid therapy in the future, pending UDS results. We will monitor with in-office testing (rapid testing) today and review the results prior to dispensing prescription, as well. Patient has been made aware of this policy. 04/27/2024 Chronic pain syndrome (ICD-10 - G89.4) 04/27/2024 Radiculopathy, cervical region (ICD-10 - M54.12) 04/27/2024 Radiculopathy, cervical region (ICD-10 - M54.12) 04/17/2024 Radiculopathy, cervical region (ICD-10 - M54.12) 02/20/2024 Radiculopathy, lumbosacral region (ICD-10 - M54.17) 02/20/2024 Other spondylosis, lumbosacral region (ICD-10 - M47.897) 04/17/2024 Radiculopathy, lumbosacral region (ICD-10 - M54.17) 04/17/2024 Other spondylosis, lumbosacral region (ICD-10 - M47.897) 02/20/2024 Sacroiliitis, not elsewhere classified (ICD-10 - M46.1) 02/20/2024 group home (current) use of opiate analgesic (ICD-10 - Z79.891) 04/17/2024 Sacroiliitis, not elsewhere classified (ICD-10 - M46.1) 04/17/2024 terminal gauger supervisor (current) use of opiate analgesic (ICD-10 - Z79.891) Plan Of Treatment Pending Test Test Name Order Date MRI Lumbar Spine w/o Cont-[id number] 01/10/20 24 MRI Lumbar Spine w/o Cont-[id number] 01/10/20 24 Sleep study > 3 Par-[id number] 12/06/2020 Sleep Study with CPAP-[id number] 12/06/2020 CT Cardiac Scoring Diagnostic-[id number] 04/0 08/2022 Schedule Confirmation 01/10/2024 Medical (General) History Medical History History ICD Code Anxiety Bipolar disorder Chronic fatigue syndrome Depression Gastroesophageal reflux disease Intervertebral disc prolapse Nicotine dependence Obesity Sleep apnea COVID COVID-19 vaccination refused Z28.21 Surgical History Surgery Date(Month/Year) cyst removed from R ovary cyst removed right ovary Cyst Removal choleystectomy 12/2021 Hospitalization History Reason Date(Month/Year) [facility] - elevated HR 03/2022 [facility] cp 11/22/2020
--- OUTSIDE RECORDS SUMMARY | 2024-10-18 15:18 | XMS_ITS | Encounter Summary ---
Author Organization [facility] Address [address] [place] [address] Care Team Providers Care Human Resources Team Member Name Role Phone Jocy Stern MD Primary Care Provider [phone] Reason for Visit * Reason Onset Date Comments Imaging Results 08/20/2024 Encounter Details Date Type Department Care Team (Late st Contact Info) Description 08/20/2024 Results Follow-Up [facility] [address] [address] Jcoy Stern MD [address] [address] HEMOGLOBIN A1C, MICROALBUMIN/CREATIN INE RATIO, RANDOM UR, US PELVIS COMPLETE Social History Tobacco Use Types Packs/Day Years Used Date Smoking Tobacco: Every Day Cigarettes Smokeless Tobacco: Never Alcohol Use Standard Drinks/Week Comments Not Currently 0 (1 standard drink = 0.6 oz pur e alcohol) Comments No Sex and Gender Information Value Date Recorded Sex Assigned at Not on file Legal Sex Female 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 Left voice mail/message that patient/caregiver can return our call. If patient/caregivercalls back, contact center please inform caller to expect a return call from the clinic. Fay BRIAN * Telephone Encounter - Fay Nathan LPN - 09/11/2024 8:37 AM CDT ----- Message from Dr. Jocy Stern sent at 09/11/2024 8:29 AM CDT ----- Pelvic US showed right ovarian cyst and a small fibroid in her uterus. Neither of which appear concerning or need to be removed based on US. Can still see INFRASTRUCTURE SOFTWARE ENGINEER if she hasn't already to discuss NOEMI/BSO for other reasons. Thanks! ----- Message ----- From: Marivel Ruiz Sent: 09/10/2024 10:33 AM CDT To: Jocy Stern MD * Result Encounter Note - Jocy Stern MD - 09/11/2024 8:29 AM CDT Pelvic US showed right ovarian cyst and a small fibroid in her uterus. Neither of which appear concerning or need to be removed based on US. Can still see INFRASTRUCTURE SOFTWARE ENGINEER if she hasn't already to discuss NOEMI/BSO for other reasons. Thanks! * Result Encounter Note - Jocy Stern MD - 08/20/2024 8:11 AM CDT Result received in [facility] documented in this encounter Plan of Treatment Upcoming Encounters Date Type Department Care Team (Late st Contact Info) Description 11/24/2024 2:40 PM CDT Office Visit [place] [address] [phone] Jocy Stern MD [address] [phone] documented as of this encounter Visit Diagnoses Not on filedocumented in this encounter Additional Health Concerns Assessment Noted Time PHQ-9 Depression Total Score: 3 08/19/19 25 12:46 PM CDT documented as of this encounter Care Teams Human Resources Team Member Relationship Specialty Start Date End Date Jocy Stern MD [address] [place] [phone] PCP - General Family Practice 05/19/24 documented as of this encounter
--- OUTSIDE RECORDS SUMMARY | 2024-10-18 15:18 | XMS_ITS | Encounter Summary ---
Author Organization [facility] Address [address] [place] [address] Care Team Providers Care Insurance Follow Up Rep Name Role Phone Jocy Stern MD Primary Care Provider [phone]- [phone] Reason for Visit * Reason Comments Information Question Information Patient Communication Question Encounter Details Date Type Department Care Team (Late st Contact Info) Description 06/04/[address] [phone] Jocy Stern MD [address] [address] Information; Question; Information; Patient Communication; Question Social History Tobacco Use Types Packs/Day Years Used Date Smoking Tobacco: Every Day Cigarettes Smokeless Tobacco: Never Alcohol Use Standard Drinks/Week Comments Not Currently 0 (1 standard drink = 0.6 oz pur e alcohol) Comments No Sex and Gender Information Value Date Recorded Sex Assigned at Not on file 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 Discussed order for xray has been placed. Patient to call back after 3 to schedule when she gets off work. Voiced understanding. Fay BRIAN * Telephone Encounter - Austin Corcoran 06/09/2024 2:30 PM CDT Copied from [facility] #[id number]. Topic: Patient or Caregiver Communication Request >> Jun 09, 2024 2:29 PM Austin Ortega wrote: Patient or Caregiver requesting that a message be sent to Care Team Caller: Sherrell Caballero Patient/Caregiver Callback Number: Telephone Information: Call Notes: states she will proceed with the Xray if she does not have to go to [place] for it to be done. * Telephone Encounter - Fay Nathan LPN - 06/09/2024 1:55 PM CDT 06/09/2024 1:55 PM Returned call. No answer. Left voice mail/message to return our call. If patient/caregiver calls back, contact center please let patient know an she has to have an xray before MRI can be ordered. Letus know if she would like to do this. Fay BRIAN * Telephone Encounter - Kym Leos - 06/09/2024 1:53 PM CDT Copied from [facility] #[id number]. Topic: CPA Information Request >> Jun 09, 2024 1:51 PM Kym Dunn wrote: Caller is returning phone call from clinic. Caller Name: Sherrell Caballero Patient/Caregiver Callback Number: Telephone Information: Clinic Left Note In Chart Is there a note from the clinic requesting the caller be transferred when they call back? No Are the credentials of the caregiver who called the patient trimmer operator? Yes Call Notes: Communicated information that is documented in the note. Patient wants call back. States there was no imaging done, she was told she will need a MRI because the Xray won't show anything. States she has the discharge paperwork instructions. * Telephone Encounter - Fay Nathan LPN - 06/09/2024 1:42 PM CDT 06/09/2024 1:42 PM Attempted to contact patient/caregiver regarding needing medical records per Dr Stern. We have not received any xrays or any other imaging. Dr. Stern needs this to be able to order an MRI. No answer. Left voice mail/message to return our call. If patient/caregiver calls back, contact center please let patient know we need these records. Fay BRIAN * Telephone Encounter - Fay Nathan LPN - 06/09/2024 9:13 AM CDT 06/09/2024 9:13 AM Spoke with [facility] medical records regarding needing additional imaging and physicians note. State that they will send this over. Fay BRIAN * Telephone Encounter - Fay Nathan LPN - 06/08/2024 3:59 PM CDT See media from [facility], thanks.Fay Nathan LPN, 06/08/2024 3:59 PM * Telephone Encounter - Codi Metcalf - 06/08/2024 3:28 PM CDT Copied from [facility] #[id number]. Topic: Patient or Caregiver Communication Request >> Jun 08, 2024 3:24 PM Codi Savage wrote: Patient or Caregiver requesting that a message be sent to Care Team Caller: Sherrell Caballero Patient/Caregiver Callback Number: [phone] Call Notes: Patient is following up on getting a MRI done * Telephone Encounter - Austin Corcoran - 06/04/2024 10:04 AM CDT Copied from [facility] #[id number]. Topic: Patient or Caregiver Communication Request >> Jun 04, 2024 10:03 AM Austin Ortega wrote: Patient or Caregiver requesting that a message be sent to Care Team Caller: Sherrell Henrry Federico Patient/Caregiver Callback Number: Telephone Information: Call Notes: calling for an update, instructed someone will update her as soon as we know. * Telephone Encounter - Kelin Schneider LPN - 06/04/2024 8:28 AM CDT 06/04/2024 8:28 AM Returned call and spoke with patient. Discussed that she went to [facility] early this morning due to pain in her right shoulder area that has been going on for a month. Patient states that she has not been getting hardly any sleep for the last 3 nights and can hardly move the arm. Would like to have MRIdone close to home so [facility] would be fine. Calling to get medical records from [facility]. Kelin BRIAN * Telephone Encounter - Codi Metcalf - 06/04/2024 8:20 AM CDT Copied from [facility] #[id number]. Topic: Patient or Caregiver Communication Request >> Jun 04, 2024 8:17 AM Codi Savage wrote: Patient or Caregiver requesting that a message be sent to Care Team Caller: Sherrell Henrry Federico Patient/Caregiver Callback Number: [phone] Call Notes: [facility] is stating patient is needing a MRI on her right rotater cuff documented in this encounter Plan of Treatment Upcoming Encounters Date Type Department Care Team (Late st Contact Info) Description 11/24/2024 2:40 PM CDT Office Visit [address] [phone] Jocy Stern MD [address] [address] documented as of this encounter Results * XR SHOULDER 2+ VW RIGHT (06/12/2024 8:03 AM CDT) Anatomical Region Laterality Modality Upper Extremity Computed Radiogr aphy 06/12/2024 8:03 AM CDT Impressions 06/12/2024 10:27 AM CDT IMPRESSION: Please see below. Exam: XR SHOULDER 2+ VW RIGHT Date/Time of Exam: 06/12/2024 8:03 AM Reason For Exam: See Diagnosis. Diagnosis: Right shoulder pain, unspecified chronicity. Comparison: None FINDINGS: AP internal, axillary and scapular Y projections are unremarkable. Narrative Procedure Note Curtis Deluca DO - 06/12/2024 IMPRESSION: Please see below. Exam: XR SHOULDER 2+ VW RIGHT Date/Time of Exam: 06/12/2024 8:03 AM Reason For Exam: See Diagnosis. Diagnosis: Right shoulder pain, unspecified chronicity. Comparison: None FINDINGS: AP internal, axillary and scapular Y projections are unremarkable. Jocy Stern MD DIAGNOSTIC IMAGING ORDERAB LES Final Result documented in this encounter Visit Diagnoses Diagnosis Right shoulder pain, unspecified chronicity- Primary Right shoulder pain, unspecified chronicity documented in this encounter Additional Health Concerns Assessment Noted Time PHQ-9 Depression Total Score: 1 05/20/19 3:54 PM CDT documented as of this encounter Care Teams Insurance Follow Up Rep Relationship Specialty Start Date End Date Jocy Stern MD [address] [phone] PCP - General Family Practice 05/19/24 documented as of this encounter
--- OUTSIDE RECORDS SUMMARY | 2024-10-18 15:18 | XMS_ITS | Clinical Summary ---
Author Organization [facility] Address [address] [place] [address] Care Team Providers Care Quarter Backer Name Role Phone Jocy Stern MD Primary Care Provider [phone]- [phone] Allergies Active Allergy Reactions Criticality Noted Date Comments Codeine Confusion Low 05/19/2024 Medications albuterol sulfate HFA 90 mcg/actuation aerosol inhaler Take 2 Puffs by inhalation every 6 hours as needed for Shortness of Breath. 8.5 Gram 05/20/19 25 Active lancets Use to check blood glucose 100 Each 05/20/19 25 Active blood sugar diagnostic (Blood Glucose Test) Strip Check before meals and at bedtime as advised. Also consider checking before exercise, with symptoms of low sugar, before and during performance of critical tasks such as driving 100 Each 05/20/19 25 Active lovastatin (MEVACOR) 10 mg tabletIndications: Mixed hyperlipidemia Take 1 Tablet (10 mg) by mouth daily with supper. 100 Tablet 3 05/22/19 25 Active clonazePAM (KlonoPIN) 0.5 mg TabletIndications: Generalized anxiety disorder Take 1 Tablet (0.5 mg) by mouth 2 times daily. 60 Tablet 5 06/02/19 25 Active metoprolol succinate (TOPROL XL) 50 mg Extended Release 24 hour tabletIndications: Benign hypertension Take 1 Tablet (50 mg) by mouth daily. 100 Tablet 3 06/25/19 25 Active hydroCHLOROthiazid e 12.5 mg tabletIndications: Benign hypertension Take 1 Tablet (12.5 mg) by mouth daily. 100 Tablet 3 06/26/19 25 Active omeprazole (PriLOSEC) 20 mg Capsule, Delayed Release(E.C.)Indic ations:Gastroesoph ageal reflux disease without esophagitis TAKE ONE CAPSULE BY MOUTH ONCE DAILY 90 Capsule 3 06/27/19 25 Active famotidine (PEPCID) 20 mg tabletIndications: Gastroesophageal reflux disease without esophagitis TAKE ONE TABLET BY MOUTH TWICE DAILY NEEDED FOR REFLUX 180 Tablet 3 06/27/19 25 Active naproxen (NAPROSYN) 500 mg tabletIndications: Chronic bilateral thoracic back pain TAKE ONE TABLET BY MOUTH TWICE DAILY 180 Tablet 06/27/19 25 Active rosuvastatin (CRESTOR) 10 mg tablet take 1 tablet by mouth every day at bedtime 05/19/19 25 Active HYDROcodone-acetam inophen (NORCO) 7.5-325 mg TabletIndications: Chronic bilateral low back pain with bilateral sciatica Take 1 Tablet by mouth every 6 hours as needed for Pain, Moderate. Max Daily Amount: 4 Tablets 120 Tablet 11/07/19 25 Active HYDROcodone-acetam inophen (NORCO) 7.5-325 mg TabletIndications: Chronic bilateral low back pain with bilateral sciatica Take 1 Tablet by mouth every 6 hours as needed for Pain, Moderate. Max Daily Amount: 4 Tablets 120 Tablet 10/10/19 25 Active HYDROcodone-acetam inophen (NORCO) 7.5-325 mg TabletIndications: Chronic bilateral low back pain with bilateral sciatica Take 1 Tablet by mouth every 6 hours as needed for Pain, Moderate. Max Daily Amount: 4 Tablets 120 Tablet 09/12/19 25 Active naloxone (NARCAN) 4 mg/spray [place], Non-Aerosol EMERGENCY USE ONLY: Administer 1 spray (4 mg) in one nostril one time. May repeat in alternating nostrils every 2-3 min until responsive or EMS arrives. 2 Each 3 08/19/19 25 Active metFORMIN (GLUCOPHAGE) 500 mg tabletIndications: Prediabetes Take 1 Tablet (500 mg) by mouth 2 times daily with meals. 200 Tablet 3 08/19/19 25 Active sertraline (ZOLOFT) 100 mg tabletIndications: Mild episode of recurrent major depressive disorder Take 2 Tablets (200 mg) by mouth daily. 180 Tablet 3 08/19/19 25 Active Active Problems Problem Noted Date Diagnosed Date Gastroesophageal reflux disease without esophagi tis 05/19/2024 Chronic cervical pain 05/19/2024 Chronic bilateral thoracic back pain 05/19/2024 Chronic bilateral low back pain with bilateral s ciatica 05/19/2024 Generalized anxiety disorder 05/19/2024 Mild episode of recurrent major depressive disor inna 05/19/2024 Benign hypertension 05/19/2024 Prediabetes 05/19/2024 Hyperlipidemia 05/19/2024 Centrilobular emphysema 05/19/2024 Tobacco use 05/19/2024 Encounters Date Type Department Care Team Description 10/07/2024 External Device Data [facility] ABSTRACTION Provider, Abstract 10/06/2024 External Device Data [facility]CTION Provider, Abstract 09/10/2024 Orders Only [address] [phone] Jocy Stern MD Ovarian mass, right 09/02/2024 External Device Data [facility] ABSTRACTION Provider, Abstract 09/01/2024 External Device Data [facility]CTION Provider, Abstract 08/20/2024 Results Follow-Up [address] [phone] Jocy Stern MD HEMOGLOBIN A1C, MICROALBUMIN/CREATI NINE RATIO, RANDOM UR, US PELVIS COMPLETE 08/18/2024 2:40 PM CDT Office Visit [address] [phone] Jocy Stern MD Ovarian mass, right (Primary Dx); Prediabetes; Mild episode of recurrent major depressive disorder; Chronic bilateral low back pain with bilateral sciatica 07/21/2024 External Device Data [facility] ABSTRACTION Provider, Abstract 07/21/2024 External Device Data [facility]STRACTION Provider, Abstract from Last 3 Months Immunizations Immunization Administration Dates Next Due (M-M-R II/PRIORIX)(12 MO UP) MEASLES, MUMPS AND RUBELLA VIRUS VACCINE, 0.5 ML IM/SUBCUT 09/26/1984 (TDVAX)(7 YRS UP) TETANUS AN D DIPHTHERIA TOXOIDS, ADSORBED (2 LF OF TETANUS TOXOID AND 2 LF OF DIPHTHERIA TOXOID), 0.5ML (PF), IM 05/11/1998 Dt Dtp Dtap Vaccine 10/18/1988, 6,03/07/1984,1983,1983 HIB, Unspecified Formulation 07/02/1986 Hepatitis B Vaccine 11/17/1998,06/15/1998,1998 IPV/OPV 10/18/1988, 6,03/07/1984,1983,1983 Social History Tobacco Use Types Packs/Day Years Used Date Smoking Tobacco: Every Day Cigarettes Smokeless Tobacco: Never Tobacco Cessation:Ready to Q uit: Not Asked; Counseling Given: Not Answered Alcohol Use Standard Drinks/Week Comments Not Currently 0 (1 standard drink = 0.6 oz pur e alcohol) Comments No Sex and Gender Information Value Date Recorded Sex Assigned at Not on file 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 Gender Identity Not on file Sexual Orientation Not on file Last Filed Vital Signs Vital Sign Reading Time Taken Comments Blood Pressure 128/72 08/18/2024 12:48 PM CDT Pulse 91 08/18/2024 12:48 PM CDT Temperature 36.3 C (97.4 F) 08/18/2024 12:48 PM CDT Respiratory Rate 18 08/18/2024 12:48 PM CDT Oxygen Saturation 96% 08/18/2024 12:48 PM CDT Inhaled Oxygen Concentration - - Weight 93.3 kg (205 lb 9.6 oz) 08/18/2024 12:48 PM CDT Height 167.6 cm (5' 6 ) 08/18/2024 12:48 PM CDT Body Mass Index 33.18 08/18/2024 12:48 PM CDT Plan of Treatment Upcoming Encounters Date Type Department Care Team (Late st Contact Info) Description 11/24/2024 2:40 PM CDT Office Visit [facility] [address] [phone] Jocy Stern MD [address] [phone] Health Maintenance Due Date Last Done Comments DTAP/TDAP/TD VACCINES (6 - Tdap) 05/12/1998 05/11/1998, 10/18/1988, 10/18/1988, Additional history exists Preventative Visit-Managed Medicaid 05/06/2002 HPV/Cotest (21-29) 05/06/2004 HPV VACCINES (1 - 3-dose SCD M series) 05/06/2010 CERVICAL CANCER SCREENING 05/06/2013 HPV/Cotest (30-65) 05/06/2013 PAP SMEAR 05/06/2013 BREAST CANCER SCREENING 2023 INFLUENZA VACCINE (#1) 2024 05/19/2024 Pre-Diabetes and Diabetes Screening 08/19/2027 08/18/2024, 05/19/2024, 10/23/2023, Additional history exists HEPATITIS B VACCINES Completed 11/17/1998, 11/17/1998, 06/15/1998, Additional history exists Procedures Procedure Name Priority Date/Time Associated Diagnosis Comments US PELVIS COMPLETE Routine 09/07/2024 Ovarian mass, right MICROALBUMIN/CREATIN INE RATIO, RANDOM UR Routine 08/18/2024 1:37 PM CDT Prediabetes HEMOGLOBIN A1C Routine 08/18/2024 1:36 PM CDT Prediabetes from Last 3 Months Results * US PELVIS COMPLETE (09/07/2024) Anatomical Region Laterality Modality Pelvis Ultrasound us Jocy Stern MD US ORDERABLES Final Resu lt * MICROALBUMIN/CREATININE RATIO, RANDOM UR (08/18/2024 1:37 PM CDT) CREATININE, URINE 121 20 - 275 mg/dL [facility] ALBUMIN, URINE 0.9 See Note: mg/dL [facility] Comment: Reference Range: Reference Range Not established ALB/CREAT RATIO, URINE 7 <30 mg/g creat [facility] Comment: The ADA defines abnormalities in albumin excretion as follows: Albuminuria Category Result (mg/g creatinine) Normal to Mildly increased <30 Moderately increased 30-299 Severely increased > OR = 300 The ADA recommends that at least two of three specimens collected within a 3-6 month period be abnormal before considering a patient to be within a diagnostic category. Test Performed at: [facility] [address] [address] [id number] Dung Shaw MD Urine URINE SPECIMEN OBTAINED BY CLEAN CATCH PROCEDURE / Unknown 08/18/2024 1:37 PM CDT 08/18/2024 1:38 PM CDT Jocy Stern MD URINE ORDERABLES Final Res ult Performing Organization Address City/[facility]/ZIP Co de Phone Number [facility] [phone] [facility] [address] [place] [address] * HEMOGLOBIN A1C (08/18/2024 1:36 PM CDT) HEMOGLOBIN A1C 5.2 <5.7 % [facility] Comment: For the purpose of screening for the presence of diabetes: <5.7% Consistent with the absence of diabetes 5.7-6.4% Consistent with increased risk for diabetes (prediabetes) > or =6.5% Consistent with diabetes This assay result is consistent with a decreased risk of diabetes. Currently, no consensus exists regarding use of hemoglobin A1c for diagnosis of diabetes in children. According to [place] Diabetes Association (ADA) guidelines, hemoglobin A1c <7.0% represents optimal control in non- diabetic patients. Different metrics may apply to specific patient populations. Standards of Medical Care in Diabetes(ADA). ESTIMATED AVERAGE GLUCOSE (MG/DL) 103 mg/dL [facility] ESTIMATED AVERAGE GLUCOSE (MMOL/L) 5.7 mmol/L [facility] Comment: Test Performed at: [facility] [address] [facility] [address] Dung Shaw MD Blood 08/18/2024 1:36 PM CDT 08/18/2024 1:37 PM CDT Jocy Stern MD CHEMISTRY ORDERABLES Final Result Performing Organization Address City/[facility]/ZIP Co de Phone Number [facility] [phone] [facility] [place] [address] [place] [address] from Last 3 Months Insurance [facility] [employer] MEDICAID Care Teams Quarter Backer Relationship Specialty Start Date End Date Jocy Stern MD [address] [place] [phone] PCP - General Family Practice 05/19/24
[2024-10-18 15:21] VITALS: BP 124/81; PULSE 81; RESP 16; TEMP 36.7; O2SAT 96; BMI 32.3
--- NOTE | 2024-10-18 15:26 | ECG_ITS ---
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 Measurements Intervals [place] Rate: 80 P: 25 MO: 163 QRS: 6 QRSD: 106 T: 30 QT: 400 QTc: 463 Interpretive Statements SINUS RHYTHM NONSPECIFIC T-WAVE ABNORMALITY No previous ECG available for comparison Electronically Signed On 10-18-2024 21:39:24 CDT by Shyam Carter M.D. [email or web address]
--- NOTE | 2024-10-18 16:11 | XRR_ITS ---
PROCEDURE INFORMATION: Exam: XR Left Ankle Exam date and time: 10/18/2024 4:23 PM Age: 39 years old Clinical indication: Injury or trauma; Other: Inversion of left ankle; Sprain or strain; Additional info: Inversion injury 3 days ago TECHNIQUE: Imaging protocol: Radiologic exam of the left ankle. Views: 3 or more views. COMPARISON: No relevant prior studies available. FINDINGS: Bones/joints: No fracture. Plantar calcaneal bone spur. Soft tissues: Normal. XR/XR ankle LT min 3V* [id number] IMPRESSION: No acute findings.
--- NOTE | 2024-10-18 16:11 | XRR_ITS ---
PROCEDURE INFORMATION: Exam: XR Chest Exam date and time: 10/18/2024 4:23 PM Age: 39 years old Clinical indication: Pain; Chest pressure; Additional info: Cp/sob/palp TECHNIQUE: Imaging protocol: Radiologic exam of the chest. Views: 1 view. COMPARISON: CT abdomen pelvis wo con [id number] 11/11/2021 10:41 PM FINDINGS: Lungs: Unremarkable. No consolidation. Pleural spaces: Unremarkable. No pleural effusion. No pneumothorax. Heart/Mediastinum: Unremarkable. No cardiomegaly. Bones/joints: Unremarkable. XR/XR chest 1V portable [id number] IMPRESSION: No acute findings.
--- NOTE | 2024-10-18 16:56 | ED_ITS ---
HPI - Chest Pain 2 General: Chief Complaint: Chest Pain Stated Complaint: chest pain Time Seen by Provider: 10/18/24 15:20 Source: patient Mode of arrival: ambulatory Limitations: no limitations History of Present Illness: Patient is a 39-year-old female with past medical history of anxiety who presents emergency department complaining of chest pain for the past 3 days. Patient states she got an argument with her daughter, and this precipitated her pain in her chest, stating it radiates down her left arm. It has been constant since onset, states that she took a Klonopin and this seemed to help somewhat. She has a history of anxiety and panic attacks, however states she also has a cardiac history where she states she has palpitations due to COVID. States that she sees a lead care manager in [place], but has not seen them in some time. She also states that over the past 2 days she had 1 syncopal episode, does not elaborate any further on this. Is not reporting any shortness of breath, but states that she has had intermittent diaphoresis. Stating the pain is a 3/10, pressure. She does not take any regular medications. Stating she still feels somewhat anxious at this time, but is sure that she has had a heart attack. Her vitals are stable. EKG in triage showing normal sinus rhythm with no acute ST segment changes. She also has multiple other complaints. She states that she is having a rash to her right foot, and recently sprained her left ankle and would like an x-ray of this area. complaint: chest pain Onset (ago): day(s) (3) Timing of current episode: constant Prior episodes: Yes Onset: other (After altercation with daughter) Pain location: substernal Pain radiation: left arm Severity: moderate Quality: other (Pressure) Relieving factors: nothing Exacerbating factors: stress Associated symptoms: Reports diaphoresis and palpitations; Deny abdominal pain, dyspnea, fever(s), nausea or vomiting Risk Factors: Coronary artery disease risk factors: none Thoracic aortic dissection risk factors: none Related Data Previous Rx's ?Medication ?Instructions ?Recorded dicyclomine 20 mg tablet 20 mg PO TID PRN abdominal p ain 11/11/21 #20 tabs ondansetron 4 mg disintegrating 4 mg PO Q6H PRN nausea and 11/11/21 tablet vomiting #14 tabs triamcinolone acetonide 0.5 % 1 applic topical BID #15 grams 10/18/24 topical ointment Allergies Allergy/AdvReac Type Severity Reaction Status Date / Time codeine Allergy ADR-Agitate Verified 10/18/24 15:28 d Review of Systems 2 General: Reports: 10 or more systems reviewed and unremarkable except in HPI and below Const: Reports: diaphoresis; Denies: fever(s), chills or fatigue Eyes: Denies: change in vision ENMT: Denies: throat pain, ear or mastoid pain or nasal discharge Card: Reports: chest pain and palpitations; Denies: swelling of feet/ankles or lightheadedness Resp: Denies: dyspnea, productive cough or wheezing GI: Denies: abdominal pain, nausea, vomiting, diarrhea or constipation : Denies: flank pain, difficulty voiding, dysuria or urinary frequency Musc: Reports: joint pain (left ankle); Denies: neck pain or back pain Skin/Breast: Reports: rash Neuro: Reports: weakness in extremities (LUE); Denies: headache(s) or numbness in extremities Psych: Reports: anxiety PFSH ED 2 PFSH: Medical History No pertinent past medical history Social History Substance/Drug Use: never Physical Exam 2 Const: COMMON NORMALS: no acute distress, patient oriented x3 and no limitations GENERAL APPEARANCE: cooperative, comfortable and well developed ORIENTATION/CONSCIOUSNESS: Yes awake, Yes oriented to person, Yes oriented to place and Yes oriented to time HENMT: COMMON NORMALS: normocephalic, atraumatic and hearing grossly normal bilaterally HEAD & SCALP: normocephalic and atraumatic Eye: COMMON NORMALS: Equal, round and reactive pupils present, EOMs intact bilaterally and conjunctivae normal CONJUNCTIVA: Yes conjunctivae normal P UPIL: Yes Equal, round and reactive pupils present Neck/C-Spine: COMMON NORMALS: full ROM, supple and no JVD Resp: COMMON NORMALS: normal respiratory effort, No retractions, No use of accessory muscles and clear to auscultation bilaterally AUSCULTATION: clear to auscultation bilaterally Cardio: COMMON NORMALS: no JVD, regular rate, regular rhythm, No clicks present (Cardio), No murmurs present (Cardio) and No rub (Cardio) RATE: r egular rate RHYTHM: regular rhythm GI: COMMON NORMALS: Normal to inspection, nondistended, normoactive bowel sounds present, Soft to palpation and non-tender AUSCULTATION: Yes normoactive bowel sounds PALPATION: Yes Soft to palpation RECTAL EXAM: d eferred Back/Pelvis: COMMON NORMALS: thoracic and lumbar spine normal to inspection, no thoracic nor lumbar tenderness and thoraco-lumbar ROM normal Extremity: COMMON NORMALS: normal to inspection, full ROM and capillary refill normal NARRATIVE EXTREMITY EXAM: Mild swelling to left lateral ankle. No deformity, bruising, or signs of trauma. Neuro: COMMON NORMALS: patient oriented x3, moves all extremities, no focal motor deficits and no sensory deficits noted SENSORIUM/ORIENTATION: Yes oriented to person, Yes oriented to place and Yes oriented to time Skin: NARRATIVE SKIN EXAM: Eczematous appearing rash, possible contact dermatitis as well to right anterior foot and wilkerson Course 2 Vital Signs: Vital signs: Vital Signs Temperature 98.1 F 10/18/24 15:21 Pulse Rate 75 10/18/24 17:13 Respiratory Rate 16 10/18/24 15:21 Blood Pressure 119/80 10/18/24 17:13 Pulse Oximetry 94 10/18/24 17:13 Oxygen Delivery Me thod Room Air 10/18/24 17:13 MDM - Chest Pain Medical Decision Making Patient presented with multiple complaints, namely chest pain has been going on for 3 days, and precipitated by an argument with her daughter. Reported subjective history of cardiac history, and that she sees lead care manager. She stated that she had palpitation of COVID, there was no STEMI evident on her EKG today that showed normal sinus rhythm with no ST segment changes. Her initial troponin was negative, rest of her lab work reassuring. Chest x-ray showing no acute findings. She had reported a sprained left ankle, x-ray was negative for any acute fracture. Also reported nonspecific rash of her right foot, we will prescribe triamcinolone. I suspect this pain is noncardiac in nature and likely related to her anxiety as she noted significant improvement after an Ativan here, and I informed her to follow-up with primary care in regards to this. She is stable for discharge home at this time with return precautions been given. Lab Data 10/18/24 17:06 10/18/24 17:06 Radiology Impressions Ankle X-Ray 10/18/24 16:11 IMPRESSION: No acute findings. Chest X-Ray 10/18/24 16:11 IMPRESSION: No acute findings. Laboratory Results WBC 8.83 10^3/uL (3.29-11.43) 10/18/24 17:06 RBC 4.46 10^6/uL (3.85-5.65) 10/18/24 17:06 Hgb 13.70 g/dL (11.27-16.99) 10/18/24 17:06 Hct 39.5 % (36-47) 10/18/24 17:06 MCV 88.6 fl (85-98) 10/18/24 17:06 MCH 30.7 pg (27-33) 10/18/24 17:06 MCHC 34.7 g/dL (30-55) 10/18/24 17:06 RDW 12.8 % (12.1-15.1) 10/18/24 17:06 Plt Count 292 10^3/cmm (157-399) 10/18/24 17:06 MPV 8.9 fL (7.4-10.4) 10/18/24 17:06 Neut % (Auto) 50.1 % 10/18/24 17:06 Lymph % (Auto) 38.2 % 10/18/24 17:06 Logan % (Auto) 7.0 % 10/18/24 17:06 Eos % (Auto) 3.9 % 10/18/24 17:06 Baso % (Auto) 0.5 % 10/18/24 17:06 Neut # (Auto) 4.43 10^3/uL (1.8-7.7) 10/18/24 17:06 Lymph # (Auto) 3.4 10^3/uL (0.8-4.8) 10/18/24 17:06 Logan # (Auto) 0.6 10^3/uL (0.2-0.9) 10/18/24 17:06 Eos # (Auto) 0.3 10^3/uL (0.0-0.8) 10/18/24 17:06 Baso # (Auto) 0.0 10^3/uL (0.0-0.1) 10/18/24 17:06 Nucleated RBC % (auto) 0 % 10/18/24 17:06 Nucleated RBCs # 0.0 /100WBC 10/18/24 17:06 Sodium 137 mmol/L (136-145) 10/18/24 17:06 Potassium 3.5 mmol/L (3.5-5.1) 10/18/24 17:06 Chloride 102 mmol/L (98-107) 10/18/24 17:06 Carbon Dioxide 25 mmol/L (22-29) 10/18/24 17:06 Anion Gap 13.5 (5-19) 10/18/24 17:06 BUN 11 mg/dL (6-20) 10/18/24 17:06 Creatinine 0.6 mg/dL (0.5-0.9) 10/18/24 17:06 GFR Calculation 110.2 mL/min (90-130) 10/18/24 17:06 Glucose 89 mg/dL (65-115) 10/18/24 17:06 Calculated Osmolality 283 mOsm/kg (285-295) L 10/18/24 17:06 Calcium 9.2 mg/dL (8.5-10.5) 10/18/24 17:06 Total Bilirubin 0.4 mg/dL (0.15-1.2) 10/18/24 17:06 AST 15 U/L (0-32) 10/18/24 17:06 ALT 17 U/L (0-33) 10/18/24 17:06 Alkaline Phosphatase 68 U/L (35-105) 10/18/24 17:06 Troponin T Baseline < 6 ng/L (0-10) 10/18/24 17:06 Total Protein 6.6 g/dL (6.6-8.7) 10/18/24 17:06 Albumin 4.4 g/dL (3.5-5.2) 10/18/24 17:06 Globulin 2.2 g/dL (1.3-4.6) 10/18/24 17:06 All radiology interpretation(s) finalized by discharge Discharge Plan Discharge Patient Disposition: Home Clinical Impression: Chest pain, non-cardiac, Anxiety, Rash Sprain of left ankle Qualifiers: Encounter type: initial encounter Involved ligament of ankle: unspecified ligament Qualified Code(s): S93.402A - Sprain of unspecified ligament of left ankle, initial encounter Condition: Stable Prescriptions: New triamcinolone acetonide 0.5 % ointment 1 applic topical BID Qty: 15 0RF No Action ondansetron 4 mg tablet,disintegrating 4 mg PO Q6H PRN (Reason: nausea and vomiting) Qty: 14 0RF dicyclomine 20 mg tablet 20 mg PO TID PRN (Reason: abdominal pain) Qty: 20 0RF Discharge Orders: Discharge ED (Routine); Ordered 10/18/24 Ordered By: Hernán Celeste Referrals: Mary Coates APRN [Primary Care Provider, Family Practice] Patient Instructions: Patient Portal & Salvador Instructions Activity Restrictions/Additional Instructions: Discharge Instructions Summary Diagnosis and Disposition: 39-year-old female evaluated for chest pain, anxiety, right foot rash, and left ankle sprain. Cardiac workup was reassuring; chest pain is noncardiac. Anxiety improved with lorazepam 0.5 mg. Rash to be treated with topical triamcinolone. Ankle sprain managed conservatively. --- 1. Noncardiac Chest Pain and Anxiety - Acute coronary syndrome (ACS) has been reasonably excluded per Society for Academic Emergency Medicine and [place] [employer] guidelines; no further cardiac testing is indicated at this time.[1] https://www.ncbi.nlm.nih.gov/pmc/articles/WZV4389728/ [2] https://www.ncbi.nlm.nih.gov/pmc/articles/YIL97515479/ - Noncardiac etiologies (musculoskeletal, anxiety) are common after negative cardiac workup.[3] https://pubmed.ncbi.nlm.nih.gov/26847276 - Anxiety symptoms responded to lorazepam; consider outpatient follow-up for further evaluation and management. Cognitive behavioral therapy (CBT) is first- line for anxiety; pharmacologic options may be considered if psychotherapy is unavailable or ineffective.[4] https://ascopubs.org/doi/10.1200/JCO.23.66281?url_ver=Z39.88-2003&rfr_id=sher:rid :crossref.org&rfr_dat=cr_pub%20%200pubmed [5] https://jamanetwork.com/journals/estefany/fullarticle/10.1001/estefany.2022.227 44?utm_source=openevidence&utm_medium=referral - Recommend follow-up with primary care provider (PCP) within 1?2 weeks for reassessment, further anxiety management, and to address any ongoing chest pain or psychosocial needs.[1] https://www.ncbi.nlm.nih.gov/pmc/articles/GIT3255076/ [2] https://www.ncbi.nlm.nih.gov/pmc/articles/MZY72123110/ Return Precautions: - Return to ED immediately for new or worsening chest pain, shortness of breath, syncope, palpitations, or any symptoms suggestive of cardiac ischemia. - Return for severe anxiety, panic attacks, or inability to function. - Return for any new or concerning symptoms. --- 2. Rash (Topical Triamcinolone Acetonide) - Apply a thin layer of triamcinolone cream to the affected area of the right foot 2?3 times daily as directed.[6] https://dailymed.PlexPress.nih.gov/dailymed/drugInfo.cfm?setid=0p3luj7j-0k32-0hj1-7396 -13h4h12f10h8 [7] https://dailyTopChalks.PlexPress.nih.gov/dailymed/drugInfo.cfm?setid=hxtick99-e86u-6854-2457 -9h997noq9264 - For external use only; avoid contact with eyes. - Do not cover the treated area with bandages or occlusive dressings unless specifically instructed. - Report any signs of local irritation, infection, or worsening rash. - Do not use for any condition other than prescribed. --- 3. Left Ankle Sprain - Initial Management: - Rest and limit use of the injured ankle; bear weight as tolerated.[8] https://pubmed.ncbi.nlm.nih.gov/06216419 [9] https://pubmed.ncbi.nlm.nih.gov/26774911 [10] https: //pubmed.ncbi.nlm.nih.gov/40511596 [11] https://doi.org/10.1249/[facility] – [place].9158123534883669 [12] https://ww w.ahajournals.org/doi/abs/10.1161/CIR.6595876018019987?url_ver=&rfr_i d=sher:rid:crossref.org&rfr_dat=cr_pub%20%200pubmed - Apply ice (not directly on skin) for 20?30 minutes, 3?4 times daily for the first 3?7 days to reduce pain and swelling.[8] https://pubmed.ncbi.nlm.nih.gov/44344310 [9] https://pubmed.ncbi.nlm.nih.gov/52850639 [12] https: //www.ahajournals.org/doi/abs/10.1161/CIR.4301705777171218?url_ver=&r fr_id=sher:rid:crossref.org&rfr_dat=cr_pub%20%200pubmed - Use a compression wrap or functional brace for comfort and support; avoid overtightening.[8] https://pubmed.ncbi.nlm.nih.gov/68511550 [9] https://pubmed.ncbi.nlm.nih.gov/99132550 [10] https: //pubmed.ncbi.nlm.nih.gov/86293114 [13] https://pubmed.ncbi.nlm.nih.gov/58516976 [12] https://www.ah ajournals.org/doi/abs/10.1161/CIR.3246740346997178?url_ver=&rfr_id=or i:rid:crossref.org&rfr_dat=cr_pub%20%200pubmed - Elevate the ankle above heart level when possible. - NSAIDs (e.g., ibuprofen, naproxen) or acetaminophen may be used for pain control if no contraindications.[14] https://www.fda.gov/drugs/sncw-wlidqrwto-ffi-databases/uvdpzuyp-elfb-iirqlugy-th hhgdmtfmq-wxnlqkpdxfe-dritggelvcu-orange-book [10] https://pubmed.ncbi.nlm.nih.gov/57044691 [15] https://pubmed.ncbi .nlm.nih.gov/37364789 [11] https://doi.org/10.1249/[facility] – [place].5046033031806072 - Rehabilitation: - Begin gentle xsvyp-kr-obcbgm and strengthening exercises as pain allows; early mobilization is preferred over prolonged rest.[8] https://pubmed.ncbi.nlm.nih.gov/86218901 [9] https://pubmed.ncbi.nlm.nih.gov/26675960 [10] https: //pubmed.ncbi.nlm.nih.gov/78155792 [13] https://pubmed.ncbi.nlm.nih.gov/88020456 [11] https://doi.org/10.1249/BALBIR.0322460128384605 - Consider referral to physical therapy if persistent pain, instability, or recurrent sprains. - Prevention: - Use ankle support (brace/tape) during high-risk activities. - Neuromuscular training and regular warm-up exercises reduce risk of future sprains.[8] https://pubmed.ncbi.nlm.nih.gov/60284462 [13] https://pubmed.ncbi.nlm.nih.gov/72292746 [15] https ://pubmed.ncbi.nlm.nih.gov/77546460 Return Precautions: - Return for inability to bear weight, worsening pain, swelling, numbness, or signs of infection. - Return for persistent instability or recurrent sprains. --- Follow-Up: - Schedule follow-up with PCP within 1?2 weeks for reassessment of chest pain, anxiety, rash, and ankle sprain.[1] https://www.ncbi.nlm.nih.gov/pmc/articles/MAZ8755982/ [2] https://www.ncbi.nlm.nih.gov/pmc/articles/QRV05551476/ - PCP may coordinate further anxiety management, dermatologic evaluation, and physical therapy as indicated. --- References * Guidelines for Reasonable and Appropriate Care in the Emergency Department (DILIP): Recurrent, Low-Risk Chest Pain in the Emergency Department https://www.ncbi.nlm.nih.gov/pmc/articles/EHU0081083/ . Francine SHIELDS, Edwin F, Kike S, et al. Academic Emergency Medicine : Official Journal of the Society for Academic Emergency Medicine. 2020;28(7):718-744. doi:10.1111/acem.54665. * 2021 ACC Expert Consensus Decision Pathway on the Evaluation and Disposition of Acute Chest Pain In?the?Emergency Department: A Report of the [place] [employer] Solution Set Oversight Committee https://www.ncbi.nlm.nih.gov/pmc/articles/QRW03831573/ . Anders MC, Jama JA, Abner RENEE, et al. Journal of the [place] [employer]. 2021;80(20):3037-7536. doi:10.1016/j.jacc.202.08.750. * Non-Cardiac Chest Pain Patients in the Emergency Department: Do Physicians Have a Plan How to Diagnose and Treat Them? A Retrospective Study https://pubmed.ncbi.nlm.nih.gov/83060348 . Carlos A MM, Veda QUIROS, M?raciel SE, et al. PloS One. 2019;14(2):y1254435. doi:10.1371/journal.pone.2088087. * Management of Anxiety and Depression in Adult Survivors of Cancer: ASCO Guideline Update https://ascopubs.org/doi/10.1200/JCO.23.08726?url_ver=Z39.88-2003&rfr_id=sher:r id:crossref.org&rfr_dat=cr_pub%20%200pubmed . Frederick BL, Татьяна C, Arcenioing K, et al. Journal of Clinical Oncology : Official Journal of the [place] Society of Clinical Oncology. 2022;41(18):0658-1467. doi:10.1200/JCO.23.39718. * Anxiety Disorders: A Review https://jamanetwork.com/journals/estefany/fullarticle/10.1001/estefany.2022.00246?utm_ source=openevidence&utm_medium=referral . Alistair AGUIAR, Abram GRANADOS. ESTEFANY. 2021;328(24):2802-6834. doi:10.1001/estefany.2022.34737. * TRIDERM https://dailymed.PlexPress.nih.gov/dailymed/drugInfo.cfm?setid=2e8hgu3y-1i95-8ez8-37 -39c1h62x68d9 . Food and Drug Administration. Updated date: 2022-12-11. * Mustapha SILVERIO https://dailymed.PlexPress.nih.gov/dailymed/drugInfo.cfm?setid=ocuqmg82-u58a-0911-89 97-7z146fer0311 . Food and Drug Administration. Updated date: 2010-03-17. * Update on Acute Ankle Sprains https://pubmed.ncbi.nlm.nih.gov/06051795 . Marta CLOUD. [employer] Family [employer]ician. 2012;85(12):1170-6. * Acute Ankle Sprain: An Update https://pubmed.ncbi.nlm.nih.gov/95062866 . Asad Moe. [employer] Family Physician. 2006;74(10):1714-20. * Ankle Stability and Movement Coordination Impairments: Lateral Ankle Ligament Sprains Revision 2020 https://pubmed.ncbi.nlm.nih.gov/30930329 . Javier RL, Jesse TE, Edenilson JJ, et al. The Journal of Orthopaedic and Sports Physical Therapy. 2020;51(4):CPG1-CPG80. doi:10.2519/jospt.2020.0302. * Initial Assessment and Management of Select Musculoskeletal Injuries: A Team Physician Consensus Statement https://doi.org/10.1249/BALBIR.6348361195333583 . Eng SA, Caitlyn WB, Tito M, et al. Medicine and Science in Sports and Exercise. 2023;56(3):385-401. doi:10.1249/BALBIR.8433349028166059. * 2023 [place] [employer] Association and [place] Guidelines for First Aid https://www.ahajournals.org/doi/abs/10.1161/CIR.7715903374741181?url_ver=Z39.8 &rfr_id=sher:rid:crossref.org&rfr_dat=cr_pub%20%200pubmed . Eloy JAMES, Brent ORTIZ, Mariann K, et al. Circulation. 2023;150(24):h383-o354. doi:10.1161/CIR.2897554560153043. * Managing Ankle Sprains in Primary Care: What Is Best Practice? A Systematic Review of the Last 10 Years of Evidence https://pubmed.ncbi.nlm.nih.gov/23611622 . Seah R, Alverto-Lashon S. [place] Medical Bulletin. 2011;97:105-35. doi:10.1093/bmb/ppe697. * FDA Riverside Book https://www.fda.gov/drugs/jrbt-oocvxrfvo-fsi-databases/ftxyvhuy-rkzg-ussjuqrx- wypexwqvmce-hredxadbjsr-gefumsqauhu-orange-book . FDA Riverside Book. * National Athletic Trainers' Association Position Statement: Conservative Management and Prevention of Ankle Sprains in Athletes https://pubmed.ncbi.nlm.nih.gov/27984340 . Sheila TW, Elaina J, Tristan N, et al. Journal of Athletic Training. 2013 ;48(4):528-45. doi:10.4085/0615-5045-61.4.02. Print Language: Serbian Coding Level of Care Code ED Revenue Cycle Manager for Tameka Cuellar
[2024-10-18 17:13] VITALS: BP 119/80; PULSE 75; O2SAT 94
[2024-10-18 17:15] LABS: Hematocrit 39.5 % (36-47); Hemoglobin 13.70 g/dL (11.27-16.99); Mean Corpuscular HGB Conc 34.7 g/dL (30-55); Mean Corpuscular Hemoglobin 30.7 pg (27-33); Mean Corpuscular Volume 88.6 fl (85-98); Nucleated Red Blood Cells % 0 %; Platelet Count 292 10^3/cmm (157-399); Red Blood Count 4.46 10^6/uL (3.85-5.65); White Blood Count 8.83 10^3/uL (3.29-11.43)
[2024-10-18 17:36] LABS: Alanine Aminotransferase 17 U/L (0-33); Albumin Level 4.4 g/dL (3.5-5.2); Alkaline Phosphatase 68 U/L (35-105); Anion Gap 13.5 (5-19); Aspartate Amino Transferase 15 U/L (0-32); Blood Urea Nitrogen 11 mg/dL (6-20); Calcium 9.2 mg/dL (8.5-10.5); Carbon Dioxide 25 mmol/L (22-29); Chloride 102 mmol/L (98-107); Creatinine Clr Calc Pharmacy 139.9913; Globulin 2.2 g/dL (1.3-4.6); Glucose 89 mg/dL (65-115); Osmolality Calculated 283 mOsm/kg (285-295); Potassium 3.5 mmol/L (3.5-5.1); Sodium 137 mmol/L (136-145); Total Protein 6.6 g/dL (6.6-8.7); Troponin(5th) Baseline < 6 ng/L (0-10)
== END 2024-10-18 18:08 | disposition home or self-care (01) ==
PROVIDERS: Emergency Provider Physician Assistant; PCP Nurse Practitioner Family
DX: R07.89 Other chest pain (principal); F41.9 Anxiety disorder, unspecified; R21 Rash and other nonspecific skin eruption; S93.402A Sprain of unspecified ligament of left ankle, initial encounter; W19.XXXA Unspecified fall, initial encounter
CPT/HCPCS: 12345; 36415; 71045; 73610; 80053; 84484; 85025; 93005; 99285; J9999